=== PATIENT | male | born 1945 | race Hispanic/Latino ===

== ENCOUNTER → 2019-04-17 | Outpatient (CLI) | payer MEDICARE | END | disposition home or self-care (01) | LOC: RAH 10:15 | PROVIDERS: ATTEND Internal Medicine Critical Care Medicine | DX: D17.71 Benign lipomatous neoplasm of kidney (principal) | CPT/HCPCS: 76700 ==

== ENCOUNTER → 2019-05-29 | Outpatient (CLI) | payer MEDICARE | END | disposition home or self-care (01) | LOC: RAH 09:24 | PROVIDERS: ATTEND Internal Medicine Critical Care Medicine | DX: R10.11 Right upper quadrant pain (principal) | CPT/HCPCS: 76700 ==